=== PATIENT | male | born 2000 | race Caucasian/White ===

== ENCOUNTER 2022-08-19 16:48 | Emergency (ER) | payer OTHER ==
[~2022-08-19] VITALS: Ht 177.8 cm; Wt 82.5 kg
[~2022-08-19 16:48] MED LIST: BUSPIRONE HCL10 MG PO; CARAFATE1 GM PO
[2022-08-19] MEDS ORDERED: ONDANSETRON ODT8 MG PO (23:03)
[2022-08-19] MEDS ORDERED: HYDROCODON-ACE1 EA10 PO (23:03)
== END 2022-08-19 23:40 | disposition home or self-care (01) ==
LOC: ED 16:48
DX: K80.70 Calculus of gallbladder and bile duct without cholecystitis without obstruction (principal); Z79.899 Other long term (current) drug therapy
CPT/HCPCS: 36415; 74177; 76705; 80053; 81001; 83690; 85025; 99284-25; A9270; J2270; J7030; Q9967